=== PATIENT | female | born 1985 | race African-American/Black ===

== ENCOUNTER 2017-04-27 06:51 | Emergency (ER) | payer OTHER ==
--- NOTE | ~2017-04-27 | CT2 ---
[facility] A Service of [facility] RADIOLOGY TEXT RESULTS PATIENT: NEENA GIANG LOCATION: [facility] : 87 UNIT #: [id number] AGE: [address]: Miguelina Graham APRN SEX: F ORDER DR: [id number] [facility] [address] [place], [place] [address] [id number] MR#: [id number] #: [id number] NAME: NEENA GIANG : 1985 SEX: F STUDY DATE/TIME: 04/27/2017 9:38 UNIT: [facility] ROOM: STUDY DESCRIPTION: CT Abd and Pelv W Cont Attending Physician: Miguelina Graham A.P.R.N. Ordering Physician: Ed Marcial Pritchard M.D. Primary Care Physician: Primary Care Physician No MEDICAL IMAGING REPORT This report is preliminary unless electronic signature is present EXAM CT of the abdomen and pelvis with contrast INDICATION Right lower quadrant pain since this morning. TECHNIQUE Axial CT images were obtained from the dome of the diaphragm through the symphysis pubis following administration of intravenous contrast material. This CT exam was performed with one or more of the following radiation dose reduction techniques: automatic exposure control, adjustment of mA and/or kV according to patient size, and iterative reconstruction. FINDINGS Images through the lung bases are clear. This patient does have hepatomegaly with the liver measuring up to 16.4 cm in craniocaudal dimensions. No focal hepatic lesions are seen and there is no intra or extrahepatic biliary dilatation. The gallbladder is normal in appearance. The spleen, stomach and proximal small bowel appear normal as are the adrenal glands, pancreas and gallbladder. No hydronephrosis is seen in either kidney. No definite renal stones are identified on this contrast-enhanced examination. Patient's appendix is visualized and is within normal limits. There is no evidence of mechanical bowel obstruction. Urinary bladder appears normal as does the uterus. There is a probable cyst on the right ovary. GI tract appears within normal limits. Review of bony windows does not demonstrate any aggressive osseous abnormalities. IMPRESSION No acute intraabdominal or intrapelvic process is seen to account for the [facility] A Service of [facility] RADIOLOGY TEXT RESULTS PATIENT: NEENA GIANG [id number] : [birth year] UNIT #: [id number] AGE: [address]: Miguelina Graham APRN SEX: F ORDER DR: patient's symptomatology. There is no evidence mechanical bowel obstruction. Patient's appendix is visualized and is within normal limits. Patient does have some hepatomegaly with the liver measuring up to 16.4 cm in craniocaudal dimensions but solid organs are otherwise unremarkable. Dictated by... Amanda Levine M.D. THIS IS AN ELECTRONICALLY VERIFIED REPORT Amanda Levine M.D. at 04/29/2017 8:03 AM SERINA/roly TD: 04/27/2017 22:54 JOB #: [id number] MEDICAL IMAGING REPORT Page 1 of 1 COPY
[2017-04-27 07:28] LABS: URINE SOURCE CLEAN CATCH
[2017-04-27 07:39] LABS: URINE APPEARANCE CLOUDY; URINE BILIRUBIN NEG (NEG); URINE BLOOD NEG (NEG); URINE COLOR YELLOW; URINE GLUCOSE NEG (NEG); URINE KETONE NEG (NEG); URINE LEUKOCYTE ESTERASE 1+ (NEG); URINE NITRATE NEG (NEG); URINE PH 5.5 (5-8); URINE PROTEIN NEG (NEG); URINE SPECIFIC GRAVITY 1.029 (1.003-1.035); URINE UROBILINOGEN 0.2 MG/DL (NEG)
[2017-04-27 07:41] LABS: CULTURE INDICATED? YES; URINE BACTERIA AUWI 3+ (NEGATIVE); URINE SQUAMOUS EPITHELIAL CELL MOD /[HPF]; UWBCS1 AUWI 25-50 (0-5)
[2017-04-27 08:11] LABS: BASOPHIL# 0.1 X10e3 (0-0.3); EOSINOPHIL# 0.2 X10e3 (0-0.7); EOSINOPHIL% 3.2 % (0.0-7.0); HEMATOCRIT 35.7 % (35.0-45.0); HEMOGLOBIN 11.5 gm/dL (12.0-16.0); LYMPHOCYTE# 2.5 X10e3 (1.0-3.5); LYMPHOCYTE% 33.9 % (17.0-45.0); MEAN CELL VOLUME 88.1 FL (83-96); MEAN CORPUSCULAR HEMOGLOBIN 28.4 PG (28-34); MEAN CORPUSCULAR HGB CONC 32.2 g/dL (30-36); MEAN PLATELET VOLUME 10.3 FL (6.5-11.5); MONOCYTE# 0.7 X10e3 (0-1.0); NEUTROPHIL% 52.9 % (40-75); PLATELET COUNT 183 X10e3 (140-420); RED BLOOD COUNT 4.05 X10e (3.90-5.30); RED CELL DISTRIBUTION WIDTH 14.7 % (11.0-15.5); WHITE BLOOD COUNT 7.5 X10e3 (4.0-10.5)
[2017-04-27 08:14] LABS: DIFF IND NO
[2017-04-27 08:47] LABS: ALBUMIN SERUM 3.8 g/dL (3.5-5.0); BILIRUBIN,TOTAL 0.2 mg/dL (0.2-2.0); BUN/CREATININE RATIO 17.5; CALCIUM SERUM 8.9 mg/dL (8.4-10.2); CREATININE SERUM 0.8 mg/dL (0.6-1.4); GLOM FILT RATE Estimated 114.8 mL/min (>60); POTASSIUM 4.1 mmol/L (3.5-5.1); PROTEIN TOTAL SERUM 6.9 g/dL (6.0-8.3)
[2017-04-30 13:15] LABS: CHLAMYDIA TRACH Not Detected (Not Detected); N GONOR Not Detected (Not Detected)
== END 2017-04-27 11:08 | disposition home or self-care (01) ==
LOC: CED 06:51
PROVIDERS: Nurse Practitioner
DX: N76.0 Acute vaginitis (principal); N30.00 Acute cystitis without hematuria; J45.909 Unspecified asthma, uncomplicated; F17.210 Nicotine dependence, cigarettes, uncomplicated; Z91.040 Latex allergy status
CPT/HCPCS: 36415; 74177; 80053; 81003; 83690; 84703; 85025; 87086; 87491; 87591; 87808; 87905; 96374; 96375; 99284; J2270; J2405; Q9967